=== PATIENT | female | born 1980 | race African-American/Black ===

== ENCOUNTER 2018-02-25 18:57 | Emergency (ER) | payer OTHER ==
[~2018-02-25] VITALS: Ht 175.3 cm; Wt 136.1 kg
[~2018-02-25 18:57] MED LIST: AMOXICILLIN 50500 MG PO; AMOXICILLIN500 M1 PO; ASPIRIN EC81 M1; AUGMENTIN 875875 MG PO; CARVEDILOL6.25 MG PO; COREG12.5 MG PO; DEPO-PROVERA; IBUPROFEN 600600 M1 PO; IBUPROFEN 800800 M1 PO; KEFLEX500 MG PO; LABETOLOL; LISINOPRIL-HCT1 EAC2 PO; LISINOPRIL10 MG PO; MOBIC15 MG PO; NAPROSYN500 MG PO; NIFEDIPINE ER90 M1 PO; NORCO 5-325 TA1 EACH PO; PENICILLIN V P500 MG PO; PENICILLIN VK250 MG PO; PERCOCET 5-3251 EACH PO; PREDNISONE 20 M20 MG PO; TOPAMAX50 MG PO; VEETIDS 250MG250 M1 PO; VICODIN 5-5001 EACH PO; VICOPROFEN 2001 EACH PO
[2018-02-25] MEDS ORDERED: NORCO 5-325 TA1 EACH PO (19:31)
[2018-02-25] MEDS ORDERED: CIPRODEX OTIC7.5 ML OTIC (19:31)
== END 2018-02-25 20:09 | disposition home or self-care (01) ==
LOC: ER 18:57
DX: H60.93 Unspecified otitis externa, bilateral (principal); H66.93 Otitis media, unspecified, bilateral; Z88.6 Allergy status to analgesic agent; Z88.8 Allergy status to other drugs, medicaments and biological substances; Z98.890 Other specified postprocedural states

== ENCOUNTER 2018-08-05 13:30 | Emergency (ER) | payer OTHER ==
[~2018-08-05] VITALS: Ht 175.3 cm; Wt 136.1 kg
[~2018-08-05 13:30] MED LIST changes: +CIPRODEX OTIC7.5 ML OTIC
[2018-08-05] MEDS ORDERED: AUGMENTIN 875-1 EACH PO (14:49)
[2018-08-05] MEDS ORDERED: CIPRODEX OTIC7.5 ML OTIC (14:49)
[2018-08-05] MEDS ORDERED: NORCO 10-325 T1 EACH PO (14:50)
[2018-08-05 15:34] VITALS: BP 140/91
== END 2018-08-05 15:21 | disposition home or self-care (01) ==
LOC: ER 13:30
DX: H60.93 Unspecified otitis externa, bilateral (principal); H66.92 Otitis media, unspecified, left ear; Z98.890 Other specified postprocedural states; Z88.6 Allergy status to analgesic agent; Z88.8 Allergy status to other drugs, medicaments and biological substances

== ENCOUNTER 2020-11-23 15:08 | Emergency (ER) | payer OTHER ==
[~2020-11-23] VITALS: Ht 175.3 cm; Wt 145.2 kg
[2020-11-23 15:08] VITALS: BP 156/108
[~2020-11-23 15:08] MED LIST changes: +AUGMENTIN 875-1 EACH PO; +NORCO 10-325 T1 EACH PO
[2020-11-23] MEDS ORDERED: CIPRO HC OTIC S10 ML OTIC (15:22)
[2020-11-23] MEDS ORDERED: AMOXICILLIN500 M1 PO (15:22)
== END 2020-11-23 15:42 | disposition home or self-care (01) ==
LOC: ER 15:08
DX: H66.92 Otitis media, unspecified, left ear (principal); I42.9 Cardiomyopathy, unspecified; Z79.891 Long term (current) use of opiate analgesic; Z79.899 Other long term (current) drug therapy; Z79.82 Long term (current) use of aspirin; Z88.5 Allergy status to narcotic agent; Z88.8 Allergy status to other drugs, medicaments and biological substances